=== PATIENT | male | born 1990 | race Caucasian/White ===

== ENCOUNTER 2022-02-17 23:06 | Emergency (ER) | payer OTHER ==
[2022-02-18] MEDS ORDERED: AMOX TR-K CLV1 EAC4 PO (01:40)
== END 2022-02-18 02:06 | disposition home or self-care (01) ==
LOC: FER 23:06
DX: S51.812A Laceration without foreign body of left forearm, initial encounter (principal); S30.811A Abrasion of abdominal wall, initial encounter; F17.210 Nicotine dependence, cigarettes, uncomplicated; Z23 Encounter for immunization; W54.0XXA Bitten by dog, initial encounter; Y92.009 Unspecified place in unspecified non-institutional (private) residence as the place of occurrence of the external cause
CPT/HCPCS: 90471; 90715

== ENCOUNTER 2022-02-24 12:32 | Emergency (ER) | payer OTHER ==
[~2022-02-24 12:32] MED LIST: AMOX TR-K CLV1 EAC4 PO
== END 2022-02-24 22:38 | disposition home or self-care (01) ==
LOC: FER 12:32
DX: S51.812D Laceration without foreign body of left forearm, subsequent encounter (principal); W54.0XXD Bitten by dog, subsequent encounter
CPT/HCPCS: 99281

== ENCOUNTER 2022-05-17 13:21 | Emergency (ER) | payer OTHER | END 2022-05-17 14:17 | disposition home or self-care (01) | LOC: FER 13:21 | DX: S41.111A Laceration without foreign body of right upper arm, initial encounter (principal); F17.210 Nicotine dependence, cigarettes, uncomplicated; Z28.310 Unvaccinated for COVID-19; W19.XXXA Unspecified fall, initial encounter; Y93.89 Activity, other specified; Y92.009 Unspecified place in unspecified non-institutional (private) residence as the place of occurrence of the external cause ==

== ENCOUNTER 2022-05-25 09:29 | Emergency (ER) | payer OTHER | END 2022-05-25 10:00 | disposition home or self-care (01) | LOC: FER 09:29 | DX: S41.111D Laceration without foreign body of right upper arm, subsequent encounter (principal); Z28.310 Unvaccinated for COVID-19; X58.XXXD Exposure to other specified factors, subsequent encounter | CPT/HCPCS: 99281 ==